=== PATIENT | female | born 2005 | race Caucasian/White ===

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

== ENCOUNTER 2023-11-13 20:23 | Emergency (ER) | payer OTHER, SELFPAY ==
[2023-11-13 20:27] VITALS: BP 137/88; PULSE 97; TEMP 37.1; O2SAT 98; BMI 30.1
--- NOTE | 2023-11-13 20:37 | ED.EAR1 ---
HPI - Ear Problem General Chief complaint: Ear Stated complaint: EAR PAIN Time Seen by Provider: 11/13/23 20:31 Source: patient Mode of arrival: walk-in Limitations: no limitations History of Present Illness HPI Narrative: 18-year-old female presents for left ear pain. She has had no trauma or drainage. No pain in the right ear or sore throat. No dental pain. It feels like something is swollen and there. She has had it for a few days. Related Data Home Medications ?Medication ?Instructions ?Recorded ?Confirmed levothyroxine 100 mcg tablet mcg 11/13/23 montelukast 10 mg tablet mg 11/13/23 thyroid (pork) 60 mg tablet mg 11/13/23 ([place] Thyroid) Allergies Allergy/AdvReac Type Severity Reaction Status Date / Time amoxicillin Allergy Hives Verified 11/13/23 20:31 Review of Systems ROS Narrative A ten point review of systems is negative except as noted above. Exam Narrative Exam Narrative: Nurses note and vital signs reviewed and patient is not hypoxic. General: The patient appears well and in no apparent distress. Patient is resting comfortably on cart. Skin: Warm, dry, no pallor noted. There is no rash noted. Head: Normocephalic, atraumatic Eye: Normal conjunctiva, no drainage Ears, Nose, Mouth, and Throat: oral mucosa is moist. Nares patent. Right TM and external canal are normal. The left TM is normal but the external canal swollen with some drainage. No foreign bodies noted. Cardiovascular: Regular Rate and Rhythm Respiratory: Patient is in no distress, no accessory muscle use Back: non-tender GI: Nontender Musculoskeletal: No joint swelling Neurological: Awake and alert Psychiatric: Cooperative Constitutional Vital Signs, click to edit/add: Last Vital Signs Temp 98.7 F 11/13/23 20:27 Pulse 97 H 11/13/23 20:27 Resp 18 11/13/23 20:27 BP 137/88 11/13/23 20:27 Pulse Ox 98 11/13/23 20:27 O2 Del Method Room Air 11/13/23 20:27 Course Vital Signs Vital signs: Vital Signs Temperature 98.7 F 11/13/23 20:27 Pulse Rate 97 H 11/13/23 20:27 Respiratory Rate 18 11/13/23 20:27 Blood Pressure 137/88 08/15/24 20:27 Pulse Oximetry 98 11/13/23 20:27 Oxygen Delivery Method Room Air 11/13/23 20:27 Temperature 98.7 F 11/13/23 20:27 Pulse Rate 97 H 11/13/23 20:27 Respiratory Rate 18 11/13/23 20:27 Blood Pressure 137/88 11/13/23 20:27 Pulse Oximetry 98 11/13/23 20:27 Oxygen Delivery Method Room Air 11/13/23 20:27 Medical Decision Making MDM Narrative Medical decision making narrative: My clinical impression is that she has otitis externa. Treatment diagnosis and follow-up were discussed with the patient and her mother. She was dispensed Cortisporin. Differential Diagnosis Differential Diagnosis: Otitis media, otitis externa Discharge Plan Discharge Stand Alone Forms: Portal Instructions Chief Complaint: Ear Clinical Impression: Otitis externa Patient Disposition: Home, Self-Care Time of Disposition Decision: 20:37 Condition: Good Mode of Transportation: Private Vehicle Prescriptions / Home Meds: No Action levothyroxine 100 mcg tablet montelukast 10 mg tablet thyroid (pork) [[place] Thyroid] 60 mg tablet Print Language: Tajik Instructions: [facility] (ED) Additional Instructions: Cortisporin dispensed, 3 drops 3 times a day into left ear Referrals: SHANA RAMOS [Primary Care Provider] - 1 week
[2023-11-13] MEDS: NEOMYCIN/POLYMYXIN B/HYDROCORTISONE OTIC SOLUTION 200 DROP/10 ML BOTTLE OT (20:56)
== END 2023-11-13 21:04 | disposition home or self-care (01) ==
PROVIDERS: Emergency Provider Emergency Medicine; PCP Family Medicine
DX: H60.92 Unspecified otitis externa, left ear (principal)
CPT/HCPCS: 99283